=== PATIENT | male | born 1990 | race Caucasian/White ===

== ENCOUNTER 2016-10-10 03:28 | Emergency (ER) | payer SELFPAY ==
[~2016-10-10] VITALS: Ht 182.9 cm; Wt 83.7 kg
[~2016-10-10 03:28] MED LIST: MIRALAX17 GM PO; MOBIC15 MG PO; MOTRIN400 MG PO; VICODIN 5-3001 EACH PO; ZOFRAN ODT4 MG PO
[2016-10-10] MEDS ORDERED: MOTRIN600 MG PO (03:53)
[2016-10-10 04:01] VITALS: BP 130/88
== END 2016-10-10 04:03 | disposition home or self-care (01) ==
LOC: EME 03:28
DX: K08.89 Other specified disorders of teeth and supporting structures (principal); K05.00 Acute gingivitis, plaque induced; R07.81 Pleurodynia; F17.200 Nicotine dependence, unspecified, uncomplicated
CPT/HCPCS: 99281; 99283